=== PATIENT | male | born 1995 | race Caucasian/White ===

== ENCOUNTER 2024-09-29 16:51 | Emergency (ER) | payer SELFPAY ==
[2024-09-29] MEDS ORDERED: Sodium Chloride 0.9% 10 ML Syringe FLUSH PRN (17:02)
[2024-09-29 17:23] LABS: BASOPHILS PERCENT AUTO 0.2 % (0.2-1.2); EOSINOPHILS ABSOLUTE AUTO 0.1 x10^3/uL (0.0-0.5); EOSINOPHILS PERCENT AUTO 0.8 % (0.0-4.0); HEMATOCRIT 49.6 % (40.0-52.0); HEMOGLOBIN 17.5 g/dL (14.0-18.0); IMMATURE GRAN ABSOLUTE AUTO 0.04 x10^3/uL (0.00-0.07); LYMPHOCYTES ABSOLUTE AUTO 2.7 x10^3/uL (1.0-4.8); LYMPHOCYTES PERCENT AUTO 23.8 % (25.0-50.0); MEAN CORPUSCULAR HEMOGLOBIN 28.8 pg (26.0-32.0); MEAN CORPUSCULAR HGB CONC 35.3 g/dL (32.0-36.0); MEAN CORPUSCULAR VOLUME 81.6 fL (78.0-93.0); MONOCYTES ABSOLUTE AUTO 0.8 x10^3/uL (0.0-0.8); MONOCYTES PERCENT AUTO 7.2 % (2.0-11.0); NEUTROPHILS ABSOLUTE AUTO 7.8 x10^3/uL (1.8-7.7); NEUTROPHILS PERCENT AUTO 67.7 % (50.0-80.0); PLATELET COUNT,PLT 109 x10^3/uL (130-400); RED BLOOD CELL COUNT 6.08 x10^6/uL (4.5-6.0); WHITE BLOOD CELL COUNT,WBC 11.5 x10^3/uL (4.0-10.0)
[2024-09-29 17:30] LABS: HCO3 VENOUS,POC 28 mmol/L (22-29); O2 SATURATION VENOUS,POC 61 %; PCO2 VENOUS,POC 50 mmHg (41-51); PH VENOUS,POC 7.36 pH (7.32-7.43); PO2 VENOUS,POC 34 mmHg
[2024-09-29] MEDS: Sodium Chloride 0.9% 1,000 ML IV ONE (17:30)
[2024-09-29] MEDS: Ondansetron 4 MG/2 ML SDV IVPUSH ONE (17:30)
[2024-09-29 17:38] LABS: A/G RATIO 0.94; ALANINE AMINOTRANSFERASE,ALT 52 U/L (16-63); ALBUMIN 3.3 g/dL (3.4-5.0); ALKALINE PHOSPHATASE 79 U/L (46-116); ASPARTATE AMNIOTRANSFERASE,AST 14 U/L (15-37); BILIRUBIN TOTAL 0.5 mg/dL (0.2-1.0); BLOOD UREA NITROGEN,BUN 8 mg/dL (7-18); CALCIUM 8.5 mg/dL (8.5-10.1); CARBON DIOXIDE,CO2 28 mmol/L (21-32); CHLORIDE,CL 102 mmol/L (98-107); CREATININE 0.8 mg/dL (0.70-1.30); GLUCOSE RANDOM 271 mg/dL (70-99); LIPASE 58 U/L (19-71); POTASSIUM,K 4.1 mmol/L (3.5-5.1); PROTEIN TOTAL,TP 6.8 g/dL (6.4-8.2); SODIUM,NA 137 mmol/L (136-145)
[2024-09-29 17:39] LABS: ANION GAP 11.1 mmol/L (5-15); ESTIMATED GFR 124 mL/min (>=60)
[2024-09-29] MEDS: Take Home: Ondansetron 4 MG Tab.DIS, 5 Tab Pack PO ONE (18:07)
== END 2024-09-29 18:11 | disposition home or self-care (01) ==
LOC: VM.ED 16:51
DX: K52.9 Noninfective gastroenteritis and colitis, unspecified (principal); Z88.0 Allergy status to penicillin; Z79.899 Other long term (current) drug therapy
CPT/HCPCS: 80053; 82010; 82803; 83690; 85025; 96361; 96374; 99284-25; J2405; J7030; Q0162